=== PATIENT | female | born 1970 | race Caucasian/White ===

== ENCOUNTER → 2019-07-05 | Outpatient (CLI) | payer OTHER ==
[~2019-07-05] MED LIST: MULT-963 PO
--- NOTE | 2019-07-05 14:29 | Diagnostic Imaging Report ---
INDICATION: Right hand pain. EXAMINATION: AP, oblique and lateral views of the right hand are obtained. FINDINGS: No acute fracture or dislocation is identified. No abnormal lytic or sclerotic focus is seen, and there is no radiopaque foreign body. IMPRESSION: No acute abnormality. Dictated by: Dictated on workstation # [id number]
== END ==
LOC: RAD FS 14:07
PROVIDERS: ATTEND Nurse Practitioner Family
DX: M79.641 Pain in right hand (principal)
CPT/HCPCS: 73130

== ENCOUNTER → 2019-07-06 | Outpatient (CLI) | payer OTHER ==
--- NOTE | 2019-07-06 11:47 | Diagnostic Imaging Report ---
PROCEDURE: MRI left upper extremity without contrast. TECHNIQUE: Multiplanar, multisequence non contrast-enhanced MRI of the left upper extremity was accomplished. INDICATION: Chronic left shoulder pain. COMPARISON: No prior MRI studies are available for comparison. FINDINGS: The biceps tendon is in a normal location within the bicipital groove. The subscapularis tendon of the rotator cuff appears to be intact. There is some minimal intrasubstance signal within the supraspinatus tendon of the rotator cuff near its insertion on the footprint suggestive of minimal intrasubstance tear. No definite bursal or articular sided tear is seen. Infraspinatus tendon appears to be intact. There is no retraction of the cuff. No fluid is identified within the subacromial-subdeltoid bursa. Minimal edema within the humeral head near the supraspinatus insertion is noted. No shoulder joint effusion is identified. Acromioclavicular alignment are normal. Minimal AC joint degenerative change is seen. IMPRESSION: Very small intrasubstance tear of the supraspinatus tendon of the rotator cuff near the insertion on the footprint. No full-thickness tear or retraction of the cuff is identified. Dictated by: Dictated on workstation # [id number]
== END ==
LOC: RAD 09:21
PROVIDERS: ATTEND Nurse Practitioner Family
DX: M75.102 Unspecified rotator cuff tear or rupture of left shoulder, not specified as traumatic (principal)
CPT/HCPCS: 73221

== ENCOUNTER → 2020-01-11 | Outpatient (CLI) | payer OTHER ==
--- NOTE | 2020-01-11 12:22 | Diagnostic Imaging Report ---
CLINICAL INDICATION: Patient with pain for two months. No known injury. EXAM: X-ray of the mandible, four views. COMPARISON: None. FINDINGS AND IMPRESSION: 1: The temporomandibular joints are partially obscured by overlapping anatomical structures limiting evaluation. Air-filled oropharynx also obscures the bilateral mandibular ramus and angle of the mandible regions. 2: There is no acute fracture or dislocation. There is no bony erosive or destructive process involving the visualized portions of the mandible. 3: There is cervical spine degenerative disease or vertebral body spurs and facet arthropathy. Otherwise, there is no definite significant abnormality seen. Dictated by: Dictated on workstation # [id number]
== END ==
LOC: RAD FS 11:47
PROVIDERS: ATTEND Nurse Practitioner Family
DX: R68.84 Jaw pain (principal); M47.812 Spondylosis without myelopathy or radiculopathy, cervical region
CPT/HCPCS: 70110

== ENCOUNTER → 2021-01-29 | Outpatient (CLI) | payer OTHER ==
--- NOTE | 2021-01-29 11:42 | Diagnostic Imaging Report ---
EXAMINATION: Left shoulder radiographs, 2 views. COMPARISON: April 07, 2019. HISTORY: 50-year-old female, left shoulder injury. Left shoulder pain. FINDINGS: There is an anchor in the humeral head likely relating to prior rotator cuff tendon repair. The humeral head is normally positioned relative to the glenoid. The glenohumeral joint space is grossly well maintained. The acromioclavicular joint is normally aligned. There are no acromioclavicular degenerative changes. There is no identified acute fracture. IMPRESSION: 1. Dillard in the humeral head likely relating to prior rotator cuff tendon repair. 2. Additional radiographic evaluation of the left shoulder is unremarkable. Dictated by: Dictated on workstation # [id number]
== END ==
LOC: LAB FS 10:40
PROVIDERS: ATTEND Nurse Practitioner Family
DX: S49.92XA Unspecified injury of left shoulder and upper arm, initial encounter (principal); X58.XXXA Exposure to other specified factors, initial encounter
CPT/HCPCS: 73030

== ENCOUNTER 2021-04-28 17:23 | Emergency (ER) | payer OTHER ==
[~2021-04-28] VITALS: Ht 175.2 cm; Wt 60.0 kg
[2021-04-28 17:32] VITALS: BP 91/54
--- NOTE | 2021-04-28 17:44 | ED Lower Extremity ---
General Chief Complaint: Lower Extremity Stated Complaint: FALL,LT LEG SWELLING/PAIN Source: patient Exam Limitations: no limitations History of Present Illness Date Seen by Provider: Apr 28, 2021 Time Seen by Provider: 17:32 Initial Comments 50-year-old female with no significant past medical history coming in after she twisted her left ankle. This occurred just before 5 PM today. She was walking outside on the forearm and twisted it in a hole. Was able to take some steps afterwards with some pain. Is having moderate constant throbbing pain in her left lateral ankle. Never had pain like this before. Better with rest. Has not taken any medications for yet. Allergies and Home Medications Allergies Coded Allergies: Codeine (Unverified Allergy, Mild, 08/22/12) Home Medications Multivitamin 1 Each Tablet, 1 EACH PO DAILY, (Reported) Patient Home Medication List Home Medication List Reviewed: Yes Review of Systems Constitutional: No fever EENTM: No blurred vision Respiratory: No cough Cardiovascular: No chest pain Gastrointestinal: No abdominal pain Genitourinary: No dysuria : No Musculoskeletal: joint pain Skin: No rash Psychiatric/Neurological: Denies Anxiety All Other Systems Reviewed Negative Unless Noted: Yes Past Fytulfd-Gywxtn-Ueezgl Hx Patient Social History Tobacco Use?: No Physical Exam Vital Signs Vital Signs - First Documented 04/28/21 17:32 Temp 36.7 Pulse 84 Resp 16 B/P (MAP) 91/54 (66) Pulse Ox 98 O2 Delivery Room Air Capillary Refill : Height, Weight, BMI Height: '" Weight: lbs. oz. kg; BMI Method: General Appearance: WD/WN, no apparent distress HEENT: PERRL/EOMI, normal ENT inspection, pharynx normal Neck: non-tender, full range of motion, supple, normal inspection Cardiovascular: regular rate, rhythm, no edema, no murmur Respiratory: chest non-tender, lungs clear, normal breath sounds, no res piratory distress, no accessory muscle use Gastrointestinal: normal bowel sounds, non tender, soft; No guarding Back: normal inspection Ankles: right ankle non-tender (Left lateral ankle pain tender over the distal fibula and ATFL with soft tissue swelling over that area as well, no tenderness over the Lisfranc, fifth metatarsal, calcaneus, Achilles, proximal fibula. Normal distal sensation, normal capillary refill and DP pulse. Able to move all toes. Dorsiflexes and plantar flexes with pain but is able to with good strength), right ankle normal inspection, right ankle normal range of motion, right ankle no evidence of injury; left ankle bone tenderness, left ankle limited range of motion, left ankle pain, left ankle soft tissue tenderness, left ankle swelling Neurologic/Psychiatric: no motor/sensory deficits, alert, normal mood/affect Skin: normal color, warm/dry Lymphatic: no adenopathy Progress/Results/Core Measures Results/Orders My Orders Orders - VASQUEZ STODDARD MD Ankle 3 View Left (04/28/21 17:38) Acetaminophen Tablet (Tylenol Tablet) (04/28/21 17:45) Ibuprofen Tablet (Motrin Tablet) (04/28/21 17:45) Vital Signs/I&O 04/28/21 17:32 Temp 36.7 Pulse 84 Resp 16 B/P (MAP) 91/54 (66) Pulse Ox 98 O2 Delivery Room Air Progress Progress Note : Progress Note 50-year-old female with above history coming in after inverting her left ankle. ABCs were intact and vitals were stable on presentation. Physical exam with left lateral ankle swelling. X-ray ordered and interpreted by me showing no fracture. She was given ibuprofen and Tylenol for pain control. She was given an Aircast and crutches for comfort. I believe she is stable for discharge. She was sent home with strict return precautions. I recommended she follow-up with an orthopedist within the week. Diagnostic Imaging Diagonstic Imaging: Xray Plain Films/CT/US/NM/MRI: ankle Comments X-ray ankle negative for fracture on my interpretation [facility], [place] NAME: [facility] REC#: [id number] PT STATUS: REG ER : 1970 PHYSICIAN: VASQUEZ STODDARD MD ADMIT DATE: 04/28/21/ER FS Draft Date of Exam:04/28/21 ANKLE 3 VIEW LEFT EXAMINATION: Left ankle 3 views HISTORY: Trauma and pain COMPARISON: None available. FINDINGS: The alignment is normal. No fracture is seen. The mortise is intact. Talar dome is normal. Joint spaces are normal. IMPRESSION: 1. No fracture. Dictated on workstation # [id number] Dict: 04/28/21 1752 Trans: 04/28/[address] [facility] [id number] Interpreted by: ANN DUNCAN MD Electronically signed by: Departure Impression Primary Impression: Sprain and strain of ankle Disposition: 01 HOME, SELF-CARE Condition: Stable Departure-Patient Inst. Decision time for Depature: 17:55 Referrals: [facility] (PCP) Primary Care Physician VAN HALL APRN (Family) Primary Care Physician Patient Instructions: Ankle Sprain ED Add. Discharge Instructions: He was seen in the emergency department after twisting her left ankle. Your x- ray does not show any fracture. We gave you an Aircast and crutches for comfort. Take ibuprofen for pain and Tylenol in between. Please ice it 20 minutes on roughly 4 times a day for the next several days. This is going to bruise a lot and swell a lot. Please follow-up with an orthopedic doctor within the next week. All discharge instructions reviewed with patient and/or family. Voiced understanding. VASQUEZ STODDARD MD Apr 28, 2021 17:44
[2021-04-28] MEDS ORDERED: IBUPROFEN 600 MG (MOTRIN) TAB PO ONE (17:45)
[2021-04-28] MEDS ORDERED: ACETAMINOPHEN 500 MG TAB (TYLENOL) PO ONE (17:45)
--- NOTE | 2021-04-28 17:58 | Diagnostic Imaging Report ---
EXAMINATION: Left ankle 3 views HISTORY: Trauma and pain COMPARISON: None available. FINDINGS: The alignment is normal. No fracture is seen. The mortise is intact. Talar dome is normal. Joint spaces are normal. IMPRESSION: 1. No fracture. Dictated by: Dictated on workstation # [id number]
--- OUTSIDE RECORDS SUMMARY | 2021-04-29 00:37 | XMS REPORT | Clinical Summary ---
Author Author [facility] Organization [facility] Address Unknown Phone Unavailable Care Team Providers Care Pharmacy Technician Per Diem Name Role Phone Joaquin Brewer MD PCP Lynda Gan MD Unavailable Unavailable Source Comments Some departments are not documenting in the electronic medical record. If you d o not see the information that you expected, contact Release of Information in [facility] [email or web address] Information Management department at [phone] for further assistan ce in locating additional records.[facility] Allergies Comments Active Allergy Reactions Severity Noted Date Codeine UNKNOWN 06/12/2010 Medications End Date Status Medication Sig Dispensed Refills Start Date Active MULTIVITAMIN (MULTIPLE Take by 0 VITAMIN PO) mouth Daily. Active DOCOSAHEXANOIC ACID/EPA Take 1,200 mg 0 (FISH OIL PO) by mouth Twice Daily. Active other medication Take 1 Dose 0 by mouth Daily. Black current seed oil 1000mg Active cholecalciferol (Vitamin Take 1,000 0 D3) (VITAMIN D-3) 1,000 Units by unit PO Tab tablet mouth Daily. Active Problems Problem Noted Date History of breast cancer 06/12/2010 Overview: Formatting of this note might be differ ent from the original. DIAGNOSIS: history of Left Breast DCIS s/p Mastectomy, SLNB, December 2009 HISTORY: Ms. 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 She has been referred to Breast Surgery clinic by Dr Ritesh Brewer for evaluation of new left axillary fullness and tende rness since the end of April,. She had bilateral mammograms in [place], [place] on 05/26/10, which showed no evidence of malignancy in the right hanane ast, postoperative changes in the left breast, no mammographic abnormalit y identified in the left lateral breast, BI-RADS 2. She also had MRI of both breasts and an Ultrasound of the Left breast and axilla May 26 which were normal. She started black current oil and her pain and full ness in her left breast have resolved. 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 TUBAL LIGATION 1998 Reversal in 2006 Medical History Medical History Date Comments DCIS (ductal carcinoma in situ) 11/1999 Left b reast micropapillary with necrosis Family History Medical History Relation Name Comments Cancer Father lung Cancer Other maternal great aunt , breast cancer in her 40s Relation Name Status Comments Father Other Social History Date Tobacco Use Types Packs/Day Years Used Never Smoker Comments Alcohol Use Standard Drinks/Week No 0 (1 standard drink = 0.6 o z pure alcohol) Sex Assigned at Date Recorded Not on file Last Filed Vital Signs Reading Time Taken Comments Vital Sign 125/58 09/17/2010 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 Blood Pressure 72 09/17/2010 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 Pulse 37 C (98.6 F) 09/17/2010 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 Temperature - - Respiratory Rate 100% 09/17/2010 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 Oxygen Saturation - - Inhaled Oxygen Concentration 65.6 kg (144 lb 9.6 oz) 09/17/2010 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 Weight 175.9 cm (5' 9.25") 09/17/2010 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 Height 21.2 09/17/2010 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 Body Mass Index Plan of Treatment Health Maintenance Due Date Last Done Comments HIV SCREENING 1986 DTAP/TDAP VACCINES (1 - 1989 Tdap) HEPATITIS C SCREENING 1989 PHYSICAL (COMPREHENSIVE) 1989 EXAM CERVICAL CANCER SCREENING 1992 BREAST CANCER SCREENING 2011 INFLUENZA VACCINE 06/06/2021 Results Not on filefrom Last 3 Months 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
--- OUTSIDE RECORDS SUMMARY | 2021-04-29 00:37 | XMS REPORT | Clinical Summary ---
Author Author [facility] Organization [facility] Address Unknown Phone Unavailable Care Team Providers Care Gel Coat Sprayer Name Role Phone Rikki Brown MD PCP Allergies Comments Active Allergy Reactions Severity Noted Date Codeine 06/01/2018 Medications End Date Status Medication Sig Dispensed Refills Start Date Active ofloxacin (OCUFLOX) 0.3 % Instill 1 5 mL 0 ophthalmic solution drop into the 8 left eye 4 (four) times a day. Active homatropine (ISOPTO Instill 1 15 mL 0 HOMATROPINE) 5 % drop into the 8 ophthalmic solution left eye 2 (two) times a day. Active prednisoLONE acetate Instill 1 5 mL 0 06/02 (PRED FORTE) 1 % drop into the 8 ophthalmic suspension left eye 4 (four) times a day. 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 8 06/02/2018 Social History Date Tobacco Use Types Packs/Day Years Used Never Smoker Smokeless Tobacco: Never Used Sex Assigned at Date Recorded Not on file Last Filed Vital Signs Reading Time Taken Comments Vital Sign 91/40 06/02/2018 3:22 PM CDT Blood Pressure 71 06/02/2018 3:22 PM CDT Pulse 37.1 C (98.7 F) 06/02/2018 3:22 PM CDT Temperature 16 06/02/2018 3:22 PM CDT Respiratory Rate 97% 06/02/2018 3:22 PM CDT Oxygen Saturation - - Inhaled Oxygen Concentration 62.8 kg (138 lb 6.4 oz) 06/02/2018 5:56 AM CDT Weight 175.3 cm (5' 9") 06/02/2018 5:56 AM CDT Height 20.44 06/02/2018 5:56 AM CDT Body Mass Index Plan of Treatment Not on file Implants Device Identifier Shelf Expiration Date Model / Serial / L ot Implanted Type Area Manufactur er 01/29/2021 92-02 / / [id number] Implant Eye Scleral Buckle Band Non-Tissue Left: Eye [employer] Silicone Style 240 2.5 92-02 - Implant OPHTHAL BETSY [id number] Implanted: Qty: 1 on 06/01/2018 by Shayan Francois MD at [facility] 07/06/2021 92-50-6.4 / / [id number] Implant Eye Retinal Sponge Grooved Non-Tissue Left: Eye [employer] 2.3mm X 6.4mm Style 516g 92-50-6.4 Implant OPH THALMIC - [id number] Implanted: Qty: 1 on 06/02/2018 by Shayan Francois MD at [facility] Results Not on filefrom Last 3 Months Insurance Type Payer Benefit Subscriber ID Effective Phone Address Plan / Dates Group [facility] [id number] 2018-P resent Fiore,December Personal/F Self 1970 [address] [place] [address] Fiore,December Personal/F Self 1970 [address] [place] [address] Advance Directives For more information, please contact: [phone] 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
== END 2021-04-28 18:12 | disposition home or self-care (01) ==
LOC: EDUNIT# 17:23 → ER FS 17:24
DX: S93.402A Sprain of unspecified ligament of left ankle, initial encounter (principal); X50.1XXA Overexertion from prolonged static or awkward postures, initial encounter
CPT/HCPCS: 73610; 99283; L4350